=== PATIENT | male | born 1960 | race Caucasian/White ===

== ENCOUNTER 2018-09-24 18:44 | Emergency (ER) | payer OTHER ==
[2018-09-24] MEDS ORDERED: HYDROcodone/Acetaminophen 10/325 mg Tablet ONE (19:20)
--- NOTE | 2018-09-24 19:39 | CT ---
CT BRAIN WITHOUT CONTRAST: HISTORY:Injury, headache COMPARISON:None FINDINGS: There are foci of decreased attenuation in the periventricular white matter, consistent with chronic small vessel ischemic disease. No evidence of acute infarct, hemorrhage, midline shift or abnormal extra-axial fluid collections is seen. The ventricular size is appropriate and the basilar cisterns are patent. The bony calvarium is intact. There is a scalp contusion in the right frontal region. There is mucosal disease in the paranasal sinuses. There is fluid in the maxillary sinuses. IMPRESSION: No CT evidence of acute intracranial process.
--- NOTE | 2018-09-24 20:25 | CT ---
CT CERVICAL SPINE WITH CORONAL AND SAGITTAL REFORMATIONS: HISTORY: Neck pain FINDINGS: There is loss of cervical lordosis with mild reversal. Degenerative changes are present most prominent at C4-5 and C5-6 levels. No acute fracture, subluxation or facet malalignment is identified.
[2018-09-24] MEDS ORDERED: Adacel (T-DAP) 0.5 ML SYRINGE ONE (20:37)
== END 2018-09-24 21:10 | disposition home or self-care (01) ==
LOC: SCSER 18:44
DX: S13.4XXA Sprain of ligaments of cervical spine, initial encounter (principal); S50.812A Abrasion of left forearm, initial encounter; I10 Essential (primary) hypertension; Z23 Encounter for immunization; Z79.899 Other long term (current) drug therapy; W22.8XXA Striking against or struck by other objects, initial encounter
CPT/HCPCS: 70450; 72125; 90471; 90715

== ENCOUNTER 2019-03-01 06:12 | Day surgery (SDC) | payer OTHER ==
[2019-02-26 08:13] VITALS: BMI 29.1
[2019-03-01] MEDS ORDERED: Midazolam HCl 2 mg/2 ml Vial ONE (06:14)
[2019-03-01] MEDS ORDERED: Fentanyl 100 MCG/2 ML VIAL ONE (06:14)
[2019-03-01] MEDS ORDERED: Vancomycin HCl 1.5 GM in Sodium Chloride 0.9% 250 ML 300 ML IVPB SCH (06:45)
[2019-03-01] MEDS ORDERED: Ropivacaine 0.2% 550 ML 550 ML NERVE BLCK SCH (07:09)
[2019-03-01] MEDS ORDERED: HYDROcodone/Acetaminophen 5/325 mg Tablet PO PRN ×2 (07:09)
[2019-03-01] MEDS ORDERED: Promethazine HCl 25 MG/ML VIAL IM PRN (07:09)
[2019-03-01] MEDS ORDERED: traMADol HCl 50 MG TAB PO PRN ×2 (07:09)
[2019-03-01] MEDS ORDERED: Ondansetron PF 4 MG/2 ML Vial IVP PRN (07:09)
[2019-03-01] MEDS ORDERED: Zolpidem Tartrate 5 MG TAB PO PRN (07:09)
[2019-03-01] MEDS ORDERED: Ketorolac Tromethamine 30 MG/ML VIAL IVP PRN (07:09)
[2019-03-01] MEDS ORDERED: Fentanyl 100 MCG/2 ML VIAL SLOW IVP PRN (07:10)
--- NOTE | 2019-03-01 11:52 | OP ---
DATE OF PROCEDURE: 03/01/2019 PREOPERATIVE DIAGNOSIS: Right shoulder impingement with massive cuff tear. POSTOPERATIVE DIAGNOSIS: Right shoulder impingement with massive cuff tear. PROCEDURE PERFORMED: Right open subacromial decompression followed by open rotator cuff repair. EARLY BREASTFEEDING CARE SPECIALIST: Rasheed Smith PA-C ESTIMATED BLOOD LOSS: 50 mL. COMPLICATIONS: None. ANESTHESIA: He had general anesthetic. He had a preoperative block. IMPLANTS: We used 2 titanium triple-loaded rotator cuff anchors followed by 2 BioComposite 4.75 mm SwiveLock anchors for his double-row repair. DISPOSITION: He went to the recovery room in stable condition. INDICATIONS: This is a 58-year-old male, who came in complaining of constant pain and weakness in the right arm and was found on MRI scan to have a significant rotator cuff tear. At this time, he opted to have repair of this. DESCRIPTION OF PROCEDURE: After all appropriate consent forms were explained and signed, he was taken back to the operative site and at this time was given general anesthetic. Once the level of anesthesia was appropriate, he was put in modified beach chair position with all bony prominences well padded and at this time, the right shoulder and upper extremity were prepped and draped in standard surgical fashion. The incision was made with a 10 blade down through skin. Bovie was used to coagulate any brisk venous bleeding. At this time, the Bovie was used to take full-thickness anterior deltoid off the anterior acromion going down laterally to the underlying bursa. At this time, Georges was placed to protect the underlying humeral head and a saw was used to perform an anterior and inferior acromioplasty. A rasp was used to smooth the edges and then we thoroughly irrigated this area. We did not remove any of the AC joint since he did not have any pain there preoperatively. At this time, bursa was removed. We were able to find the underlying rotator cuff. This was a torn entire supra and infraspinatus back to the teres. This was unfurled. Edges were cleaned up. We were able to separate the cuff from the underlying labrum. There was a piece of the biceps tendon that was still attached. This was removed with the scissors. We then used a blunt Georges to free up the undersurface of the cuff after placing traction sutures laterally and pulling on this gently while we took the channel medially to do our release. Once it was released in this area, we then placed a Georges on top of the cuff and again released the cuff from the overlying tissues. At this time, the cuff was able to have enough excursion and we felt we could get a primary repair. We would not be able to close the very anterior portion as the rotator interval was missing some tissue as well, but the subscapularis was found to be intact. At this time, we then removed approximately 1 cm of the cartilage, so that we could medialize our repair. This was done carefully with a curette and a rongeur, making sure to only remove the cartilage and not completely decorticate this area. Once this was done, we then placed 2 triple-loaded anchors right on this edge into the head of the humerus. We then ran each of the three strands of sutures in mattress fashion through the rotator cuff for repair. These were then tied. We then the sutures to front and back and placed two 4.75 SwiveLock in standard fashion for a double-row repair down the lateral side of the arm. At this time, the arm was taken through good range of motion and the repair was found to be cavazos. At this time, we thoroughly irrigated and dried. We then repaired our deltoid back to our acromion using multiple interrupted Ethibond sutures. We then over-reamed this with a Vicryl. 2-0 Vicryl and surgical jesus were used on skin. Bulky sterile dressing was applied. The patient was then awakened, taken to recovery room in stable condition. All counts were correct at the end of the case. He did receive preoperative IV antibiotics. Job ID: [id number]
== END 2019-03-01 11:30 | disposition home or self-care (01) ==
LOC: SDC 06:12
PROVIDERS: ATTEND Orthopaedic Surgery
PROC: 0LM10ZZ Reattachment of Right Shoulder Tendon, Open Approach (ICD-10-PCS; principal; 2019-03-01)
PROC: 0RNJ0ZZ Release Right Shoulder Joint, Open Approach (ICD-10-PCS; principal; 2019-03-01)
PROC: 0RHJ04Z Insertion of Internal Fixation Device into Right Shoulder Joint, Open Approach (ICD-10-PCS; principal; 2019-03-01)
DX: M75.121 Complete rotator cuff tear or rupture of right shoulder, not specified as traumatic (principal); M25.811 Other specified joint disorders, right shoulder; M19.011 Primary osteoarthritis, right shoulder; I10 Essential (primary) hypertension; Z79.82 Long term (current) use of aspirin; Z79.891 Long term (current) use of opiate analgesic; Z79.899 Other long term (current) drug therapy
CPT/HCPCS: A4306; C1713; J0690; J2250; J2795; J3010; J3370; J7050

== ENCOUNTER 2022-06-08 11:21 | Outpatient (CLI) | payer BC | END 2022-06-08 11:22 | disposition home or self-care (01) | LOC: CT 11:21 | PROVIDERS: ATTEND Internal Medicine | DX: N13.2 Hydronephrosis with renal and ureteral calculous obstruction (principal); K44.9 Diaphragmatic hernia without obstruction or gangrene; N40.0 Benign prostatic hyperplasia without lower urinary tract symptoms; K57.30 Diverticulosis of large intestine without perforation or abscess without bleeding; K57.10 Diverticulosis of small intestine without perforation or abscess without bleeding; D17.9 Benign lipomatous neoplasm, unspecified | CPT/HCPCS: 74176 ==

== ENCOUNTER 2022-12-16 07:35 | Day surgery (SDC) | payer BC ==
[2022-12-13 09:19] VITALS: BMI 29.8
[2022-12-16] MEDS ORDERED: Sodium Chloride 0.9% 100 ML ONE ×2 (07:53→08:49)
[2022-12-16] MEDS ORDERED: Vancomycin (BATCH) 1.5 GRAM/300 ML BAG ONE (07:53)
[2022-12-16] MEDS ORDERED: Tranexamic Acid 1,000 MG/10 ML VIAL ONE (07:53)
[2022-12-16] MEDS ORDERED: Ropivacaine 0.2% HCl/PF 20 ML ONE (08:14)
[2022-12-16] MEDS ORDERED: fentaNYL 50 mcg/mL 1 mL Vial ONE ×3 (08:14→08:59)
[2022-12-16] MEDS ORDERED: Ropivacaine 0.5% HCl/PF (150 MG/30 ML VIAL) ONE (08:14)
[2022-12-16] MEDS ORDERED: Midazolam HCl 2 mg/2 ml Vial ONE (08:14)
[2022-12-16] MEDS ORDERED: CEFAZOLIN 2 GM VIAL ONE (08:49)
[2022-12-16] MEDS ORDERED: Ropivacaine 0.2% 550 ML 550 ML NERVE BLCK SCH (09:00)
[2022-12-16] MEDS ORDERED: traMADol HCl 50 MG TAB PO PRN ×2 (09:00)
[2022-12-16] MEDS ORDERED: Ondansetron PF 4 MG/2 ML Vial IVP PRN (09:00)
[2022-12-16] MEDS ORDERED: Promethazine HCl 25 MG/ML VIAL IM PRN (09:00)
[2022-12-16] MEDS ORDERED: HYDROcodone/Acetaminophen 10/325 mg Tablet PO PRN ×2 (09:00)
[2022-12-16] MEDS ORDERED: Zolpidem Tartrate 5 MG TAB PO PRN (09:00)
[2022-12-16] MEDS ORDERED: ePHEDrine Sulfate 50 MG/10 ML VIAL ONE (09:33)
[2022-12-16] MEDS ORDERED: Ondansetron PF 4 MG/2 ML Vial ONE (09:33)
[2022-12-16] MEDS ORDERED: PROPOFOL 200 MG/20 ML VIAL ONE (09:33)
[2022-12-16] MEDS ORDERED: NEOSTIGMINE 3 MG/3 ML SYR 3 MG/3 ML SYRINGE ONE (09:33)
[2022-12-16] MEDS ORDERED: Dexamethasone 20 MG/5 ML VIAL ONE (09:33)
[2022-12-16] MEDS ORDERED: PHENYLEPHRINE-NS 100 MCG/ML 10 ML SYRINGE ONE (09:33)
[2022-12-16] MEDS ORDERED: Lidocaine 1% PF 5 ML VIAL ONE (09:33)
[2022-12-16] MEDS ORDERED: Glycopyrrolate 0.2 MG/ML 5 ML SYRINGE ONE (09:33)
[2022-12-16] MEDS ORDERED: Rocuronium Bromide 10 MG/ML (10ML VIAL) ONE (09:33)
== END 2022-12-16 13:25 | disposition home or self-care (01) ==
LOC: SDC 07:35
PROVIDERS: ATTEND Orthopaedic Surgery
PROC: 0RNK0ZZ Release Left Shoulder Joint, Open Approach (ICD-10-PCS; principal; 2022-12-16)
DX: M75.42 Impingement syndrome of left shoulder (principal); M75.122 Complete rotator cuff tear or rupture of left shoulder, not specified as traumatic; I10 Essential (primary) hypertension; Z79.899 Other long term (current) drug therapy
CPT/HCPCS: A4306; C1713; J1100; J2250; J2405; J2704; J2795; J3010; J3370; J3490

== ENCOUNTER 2023-08-04 11:26 | Outpatient (CLI) | payer BC | END 2023-08-04 11:27 | disposition home or self-care (01) | LOC: BICRAD 11:26 | PROVIDERS: ATTEND Nurse Practitioner Family | DX: M25.561 Pain in right knee (principal); M17.11 Unilateral primary osteoarthritis, right knee; M25.461 Effusion, right knee; Z98.890 Other specified postprocedural states ==